=== PATIENT | female | born 1970 | race African-American/Black ===

== ENCOUNTER 2016-11-04 23:01 | Emergency (ER) | payer BC ==
[~2016-11-04] VITALS: Ht 172.7 cm; Wt 156.5 kg
[~2016-11-04 23:01] MED LIST: PREDNISONE 20 M20 M1 PO; ULTRAM 50MG TAB50 MG PO; VENTOLIN HFA 1818 GM INH
[2016-11-05] MEDS ORDERED: AMOXICILLIN875 MG PO (00:51)
[2016-11-05] MEDS ORDERED: PREDNISONE 20 M20 MG PO (00:52)
[2016-11-05 02:26] VITALS: BP 136/74
[2016-12-16] MEDS ORDERED: NAPROSYN500 MG PO (15:28)
[2016-12-16] MEDS ORDERED: NORFLEX100 MG PO (15:28)
== END 2016-11-05 02:27 | disposition home or self-care (01) ==
LOC: ER 23:01
DX: J32.8 Other chronic sinusitis (principal); J40 Bronchitis, not specified as acute or chronic; J04.0 Acute laryngitis; I10 Essential (primary) hypertension; Z88.5 Allergy status to narcotic agent

== ENCOUNTER 2017-09-07 07:22 | Emergency (ER) | payer BC ==
[~2017-09-07] VITALS: Ht 172.7 cm; Wt 144.7 kg
[~2017-09-07 07:22] MED LIST changes: +AMOXICILLIN875 MG PO; +NAPROSYN500 MG PO; +NORFLEX100 MG PO; +PREDNISONE 20 M20 MG PO
[2017-09-07 08:24] LABS: ABSOLUTE NEUTROPHILS 3.7 thou/uL (1.4-8.2); BASOPHILS 0.6 % (0.0-2.0); EOSINOPHILS 1.5 % (0.0-3.0); HEMATOCRIT 35.4 % (37.0-47.0); HEMOGLOBIN 11.2 gm/dL (12.0-15.0); LYMPHOCYTES 25.9 % (24.0-44.0); MCH 23.5 pg (26.0-34.0); MCHC 31.6 g/dL (28.0-37.0); MCV 74.3 fL (80.0-100.0); MONOCYTES 10.9 % (1.0-8.0); PLATELET COUNT 193 thou/uL (150-400); POLYS 61.1 % (36.0-66.0); RBC 4.76 mil/uL (4.20-5.00); RDW 17.7 % (10.5-14.5); WBC 6.1 thou/uL (4.0-11.0)
[2017-09-07 08:27] LABS: MANUAL DIFF NO
[2017-09-07 08:31] LABS: CALCIUM 9.5 mg/dL (8.5-10.1); POTASSIUM 3.8 mmol/L (3.5-5.1)
[2017-09-07 08:37] LABS: ALBUMIN 3.5 g/dL (3.4-5.0); DIRECT BILIRUBIN 0.2 mg/dL (<0.1-0.3); TOTAL BILIRUBIN 0.4 mg/dL (<0.1-1.0); TOTAL PROTEIN 7.1 g/dL (6.4-8.2)
[2017-09-07] MEDS ORDERED: SENNA8.6 MG PO (08:52)
[2017-09-07] MEDS ORDERED: PHENERGAN 25 MG25 M1 PO (08:53)
[2017-09-07] MEDS ORDERED: PROMS25 WY RECTAL (08:53)
[2017-09-07 08:57] LABS: PLATELET ESTIMATE NORMAL
[2017-09-07 08:58] LABS: ANISOCYTOSIS 1+; MICROCYTES 3+
[2017-09-07 09:16] VITALS: BP 142/93
== END 2017-09-07 09:17 | disposition home or self-care (01) ==
LOC: ER 07:22
PROVIDERS: Emergency Medicine
DX: R10.9 Unspecified abdominal pain (principal); I10 Essential (primary) hypertension; R11.2 Nausea with vomiting, unspecified; Z88.5 Allergy status to narcotic agent

== ENCOUNTER 2018-12-25 07:17 | Emergency (ER) | payer BC ==
[~2018-12-25] VITALS: Ht 172.7 cm; Wt 124.7 kg
[~2018-12-25 07:17] MED LIST changes: +PHENERGAN 25 MG25 M1 PO; +PROMS25 WY RECTAL; +SENNA8.6 MG PO
[2018-12-25] MEDS ORDERED: PHENTERMINE HCL15 MG PO (07:44)
[2018-12-25] MEDS ORDERED: PROTONIX40 M1 PO (07:44)
[2018-12-25] MEDS ORDERED: SERTRALINE HCL50 MG PO (07:44)
[2018-12-25 08:06] LABS: HEMATOCRIT 37.2 % (37.0-47.0); HEMOGLOBIN 12.1 gm/dL (12.0-15.0); MCH 25.2 pg (26.0-34.0); MCHC 32.4 g/dL (28.0-37.0); MCV 77.8 fL (80.0-100.0); RBC 4.79 mil/uL (4.20-5.00); RDW 14.4 % (10.5-14.5); WBC 3.7 thou/uL (4.0-11.0)
[2018-12-25 08:17] LABS: ANION GAP 11 mmol/L (7-16); BUN 16 mg/dL (7-18); CALCIUM 9.2 mg/dL (8.5-10.1); CHLORIDE 102 mmol/L (98-107); CO2 24 mmol/L (21-32); CREATININE 1.2 mg/dL (0.6-1.0); GLUCOSE 212 mg/dL (74-106); POTASSIUM 3.1 mmol/L (3.5-5.1); SODIUM 137 mmol/L (136-145)
[2018-12-25 08:26] LABS: ALBUMIN 3.6 g/dL (3.4-5.0); LIPASE 84 U/L (73-393); SGOT 19 U/L (15-37); SGPT 21 U/L (30-65); TOTAL BILIRUBIN 0.3 mg/dL (<0.1-1.0); TOTAL PROTEIN 7.8 g/dL (6.4-8.2); TROPONIN-I <0.06 ng/mL (<0.06)
[2018-12-25 08:45] LABS: URINE BILIRUBIN NEGATIVE (Negative); URINE BLOOD 3+ (Negative); URINE CLARITY CLOUDY; URINE COLOR YELLOW; URINE GLUCOSE-RANDOM* NEGATIVE (Negative); URINE KETONES 1+ (Negative); URINE LEUKOCYTES-REFLEX 3+ (Negative); URINE NITRITE-REFLEX NEGATIVE (Negative); URINE PROTEIN (DIPSTICK) TRACE (Negative); URINE SPECIFIC GRAVITY 1.025 (1.005-1.035); URINE UROBILINOGEN 0.2 E.U./dl (0.2-1.0)
[2018-12-25 08:53] LABS: CASTS None Seen /LPF (None Seen); MUCUS >6 Heavy strn/LPF (None Seen); SQUAMOUS >10 Many /LPF (0-3)
[2018-12-25 08:55] LABS: CRYSTALS None Seen /LPF (None Seen); URINE WBC-REFLEX >25 Many /HPF (0-5)
--- NOTE | 2018-12-25 09:12 | EKG ---
[address] [address] ELECTROCARDIOGRAM REPORT Name: MODESTA NGUYEN Room #: [facility]#: [id number] ������������������ Admission: 12/25/18 ������������������ Attend Phys: Discharge: ������������������ Date of : 70 Report #: [id number] ����������������������������������������������������������������� [id number] THIS REPORT FOR: //name// [facility] ED Test Date: 2018-12-25 Test Time: 08:42:57 Pat Name: MODESTA NGUYEN Department: Room: Gender: F Eligibility Manager: : 1970 Requested By: Tammy Miller Order Number: [id number] MD: Navdeep Yancey Measurements Intervals [place] Rate: 73 P: 74 MA: 211 QRS: 52 QRSD: 91 T: 40 QT: 384 QTc: 424 Interpretive Statements Sinus rhythm Prolonged MA interval No previous ECG available for comparison Electronically Signed On 12-25-2018 9:12:19 CDT by Navdeep Yancey [email or web address] ��������������������������������������������� <ELECTRONICALLY SIGNED> ���������������������������������������� By: Navdeep Yancey MD, [facility] ��������������������������������������������� 12/25/18 0912 [id number] [id number] Navdeep Yancey MD, FACC /EPI
[2018-12-25] MEDS ORDERED: KEFLEX500 M1 PO (10:07)
[2018-12-25] MEDS ORDERED: ZOFRAN4 MG PO (10:07)
[2018-12-25 10:54] VITALS: BP 136/70
== END 2018-12-25 14:21 | disposition home or self-care (01) ==
LOC: ER 07:17
PROVIDERS: Student in an Organized Health Care Education/Training Program
DX: N39.0 Urinary tract infection, site not specified (principal); R11.2 Nausea with vomiting, unspecified; I10 Essential (primary) hypertension; Z88.5 Allergy status to narcotic agent; Z88.8 Allergy status to other drugs, medicaments and biological substances

== ENCOUNTER 2019-06-25 11:20 | Emergency (ER) | payer BC ==
[~2019-06-25] VITALS: Ht 172.7 cm; Wt 117.9 kg
[~2019-06-25 11:20] MED LIST changes: +KEFLEX500 M1 PO; +PHENTERMINE HCL15 MG PO; +PROTONIX40 M1 PO; +SERTRALINE HCL50 MG PO; +ZOFRAN4 MG PO
[2019-06-25 11:50] LABS: ABSOLUTE NEUTROPHILS 1.4 thou/uL (1.4-8.2); BASOPHILS 0.8 % (0.0-2.0); EOSINOPHILS 2.4 % (0.0-3.0); HEMOGLOBIN 12.1 gm/dL (12.0-15.0); LYMPHOCYTES 49.6 % (24.0-44.0); MCH 24.9 pg (26.0-34.0); MCHC 31.8 g/dL (28.0-37.0); MCV 78.3 fL (80.0-100.0); MONOCYTES 8.1 % (1.0-8.0); PLATELET COUNT 215 thou/uL (150-400); POLYS 39.1 % (36.0-66.0); RBC 4.85 mil/uL (4.20-5.00); RDW 14.7 % (10.5-14.5); WBC 3.6 thou/uL (4.0-11.0)
[2019-06-25 11:54] LABS: ANION GAP 10 mmol/L (7-16); BUN 15 mg/dL (7-18); CALCIUM 9.8 mg/dL (8.5-10.1); CHLORIDE 105 mmol/L (98-107); CO2 25 mmol/L (21-32); GLUCOSE 107 mg/dL (74-106); POTASSIUM 3.9 mmol/L (3.5-5.1); SODIUM 140 mmol/L (136-145)
[2019-06-25 12:03] LABS: TROPONIN-I <0.06 ng/mL (<0.06)
[2019-06-25] MEDS ORDERED: NORFLEX100 MG PO (13:01)
[2019-06-25 13:29] VITALS: BP 125/62
--- NOTE | 2019-06-26 08:39 | EKG ---
[address] [address] ELECTROCARDIOGRAM REPORT Name: MODESTA NGUYEN Room #: [facility]#: [id number] ������������������ Admission: 06/25/19 ������������������ Attend Phys: Discharge: 06/25/19 ������������������ Date of : 70 Report #: [id number] ����������������������������������������������������������������� [id number] THIS REPORT FOR: //name// [facility] ED Test Date: 2019-06-25 Test Time: 11:24:02 Pat Name: MODESTA NGUYEN Department: Room: Gender: F Residential Caregiver: EMMY : 1970 Requested By: Katty Coreas Order Number: [id number] MD: Navdeep Yancey Measurements Intervals [place] Rate: 87 P: 70 CO: 181 QRS: 63 QRSD: 86 T: 48 QT: 381 QTc: 459 Interpretive Statements Sinus rhythm Normal tracing Compared to ECG 12/25/2018 08:42:57 First degree AV block no longer present Electronically Signed On 06-26-2019 8:39:42 CDT by Navdeep Yancey [email or web address] ��������������������������������������������� <ELECTRONICALLY SIGNED> ���������������������������������������� By: Navdeep Yancey MD, [facility] ��������������������������������������������� 06/26/19 0839 [id number] Navdeep Yancey MD, [facility] /EPI
== END 2019-06-25 13:31 | disposition home or self-care (01) ==
LOC: ER 11:20
PROVIDERS: Physician Assistant
DX: R07.89 Other chest pain (principal); I10 Essential (primary) hypertension; Z88.6 Allergy status to analgesic agent

== ENCOUNTER 2020-03-08 12:35 | Emergency (ER) | payer BC ==
[~2020-03-08] VITALS: Ht 175.3 cm; Wt 126.1 kg
[2020-03-08] MEDS ORDERED: AUGMENTIN 875-1 EACH PO (13:11)
[2020-03-08] MEDS ORDERED: MOBIC7.5 MG PO (13:11)
[2020-03-08] MEDS ORDERED: CLARITIN-D 121 EAC1 PO (13:11)
[2020-03-08 13:37] VITALS: BP 156/97
== END 2020-03-08 13:38 | disposition home or self-care (01) ==
LOC: ER 12:35
DX: J32.9 Chronic sinusitis, unspecified (principal); M27.3 Alveolitis of jaws; I10 Essential (primary) hypertension; Z88.6 Allergy status to analgesic agent

== ENCOUNTER 2020-04-27 19:14 | Emergency (ER) | payer BC ==
[~2020-04-27] VITALS: Ht 175.3 cm; Wt 122.5 kg
[~2020-04-27 19:14] MED LIST changes: +AUGMENTIN 875-1 EACH PO; +CLARITIN-D 121 EAC1 PO; +MOBIC7.5 MG PO
[2020-04-28] MEDS ORDERED: ULTRAM 50MG TAB50 MG PO (00:35)
[2020-04-28] MEDS ORDERED: NORFLEX100 MG PO (00:35)
[2020-04-28 01:00] VITALS: BP 121/71
== END 2020-04-28 01:01 | disposition home or self-care (01) ==
LOC: ER 19:14
DX: S16.1XXA Strain of muscle, fascia and tendon at neck level, initial encounter (principal); S29.012A Strain of muscle and tendon of back wall of thorax, initial encounter; S63.501A Unspecified sprain of right wrist, initial encounter; I10 Essential (primary) hypertension; Z79.899 Other long term (current) drug therapy; Z88.5 Allergy status to narcotic agent; V49.9XXA Car occupant (driver) (passenger) injured in unspecified traffic accident, initial encounter; Y93.89 Activity, other specified; Y92.89 Other specified places as the place of occurrence of the external cause; Y99.8 Other external cause status